=== PATIENT | female | born 2000 | race Two or more races ===

== ENCOUNTER 2025-06-15 07:18 | Emergency (ER) | payer OTHER ==
[~2025-06-15] VITALS: Ht 175.3 cm; Wt 79.8 kg
[2025-06-15] MEDS ORDERED: KETOROLAC TROMETHAMINE 30 MG VIAL IM STA (08:29)
[2025-06-15] MEDS ORDERED: DEXAMETHASONE SODIUM PHOSPHATE 4 MG/ML VIAL IM STA (08:32)
[2025-06-15] MEDS ORDERED: FAMOTIDINE/PF 20 MG/2 ML VIAL IV STA (08:32)
[2025-06-15] MEDS ORDERED: KETOROLAC TROMETHAMINE 30 MG VIAL ONE (08:39)
[2025-06-15] MEDS ORDERED: FAMOTIDINE/PF 20 MG/2 ML VIAL ONE (08:40)
[2025-06-15] MEDS ORDERED: DEXAMETHASONE SODIUM PHOSPHATE 4 MG/ML VIAL ONE (08:40)
[2025-06-15 09:05] LABS: BASO % 0.5 % (0.1-1.2); EOS # 0.25 (0.04-0.54); EOS % 3.2 % (0.7-7.0); LYMPH # 1.60 (1.18-3.74); LYMPH % 20.5 % (19.3-53.1); MEAN PLATELET VOLUME 9.20 fl (9.4-12.4); MONO # 0.40 (0.24-0.82); MONO % 5.1 % (4.7-12.5); NEUT # 5.50 (1.56-6.13); NEUT % 70.4 % (34.0-71.1); RED CELL DISTRIBUTION WIDTH 12.3 % (11.6-14.4)
[2025-06-15 09:24] LABS: INR 0.97
[2025-06-15 09:28] LABS: ALT/SGPT 18.0 U/L (12-78); AST/SGOT 10.0 U/L (15-37); BILIRUBIN TOTAL 0.29 mg/dL (0.3-1.2); BILIRUBIN,CONJUGATED 0.1 mg/dL (0.0-0.2); BUN CREA RATIO 10.0 (7.0-25.0); CREATININE SERUM 0.94 mg/dL (0.55-1.02); GFR 73.79; GLUCOSE FASTING 83.0 mg/dL (65-100); OSMOLALITY SERUM 279.0 MOSM/KG (275-295)
[2025-06-15 10:57] LABS: URINE APPEARANCE Clear; URINE BILIRRUBIN Negative (NEGATIVE); URINE BLOOD Negative; URINE COLOR Yellow; URINE GLUCOSE Negative (NEGATIVE); URINE KETONE Trace (NEGATIVE); URINE LEUKOCYTE Negative; URINE NITRATE Negative; URINE PROTEIN Negative (NEGATIVE); URINE UROBILINOGEN 1.0 E.U./dl
[2025-06-15 11:03] LABS: URINE BACTERIA 926.2 uL (0.0-1933); URINE EPITHELIAL CELLS 25.0 uL (0.0-38.8); URINE RBC 2.0 uL (0.0-20.8); URINE WBC 10.7 uL (0.0-23.2)
[2025-06-15 11:18] LABS: URINE CAST 0.00 uL (0.0-1.40)
[2025-06-15] MEDS ORDERED: NAPROXEN500 MG PO (13:25)
== END 2025-06-15 14:30 | disposition home or self-care (01) ==
LOC: ER 07:18
PROVIDERS: General Practice
DX: R10.31 Right lower quadrant pain (principal); N83.201 Unspecified ovarian cyst, right side; R10.20 Pelvic and perineal pain unspecified side
CPT/HCPCS: 36415; 74177; Q9965